=== PATIENT | female | born 1950 | race Two or more races ===

== ENCOUNTER 2019-07-13 22:33 | Emergency (ER) | payer OTHER ==
[~2019-07-13] VITALS: Ht 162.6 cm; Wt 91.6 kg
[~2019-07-13 22:33] MED LIST: ATENOLOL50 MG PO; DIOVAN160 M1 PO; FIORICET TABLET1 TAB PO; HYZAAR 100-251 UDTAB
[2019-07-14] MEDS ORDERED: PYRIDIUM100 M1 PO (05:25)
[2019-07-14] MEDS ORDERED: CIPRO500 MG PO (05:25)
== END 2019-07-14 05:56 | disposition home or self-care (01) ==
LOC: ER 22:33
DX: N39.0 Urinary tract infection, site not specified (principal)

== ENCOUNTER 2023-05-28 21:40 | Emergency (ER) | payer OTHER ==
[~2023-05-28] VITALS: Ht 162.6 cm; Wt 77.1 kg
[~2023-05-28 21:40] MED LIST changes: +CIPRO500 MG PO; +PYRIDIUM100 M1 PO
[2023-05-29] MEDS ORDERED: PHENERGAN25 MG PO (12:49)
[2023-05-29] MEDS ORDERED: LIPO-FLAVONOID1 EACH PO (12:49)
== END 2023-05-29 00:33 | disposition home or self-care (01) ==
LOC: ER 21:40
PROVIDERS: General Practice
DX: R42 Dizziness and giddiness (principal); Z88.0 Allergy status to penicillin; I10 Essential (primary) hypertension; E11.9 Type 2 diabetes mellitus without complications; Z86.73 Personal history of transient ischemic attack (TIA), and cerebral infarction without residual deficits
CPT/HCPCS: 36415; 70450; 71045; 96365; 96366; 99284; J2250; J2765; J3490; J7030

== ENCOUNTER 2025-02-24 09:54 | Outpatient (CLI) | payer OTHER ==
[~2025-02-24 09:54] MED LIST changes: +LIPO-FLAVONOID1 EACH PO; +PHENERGAN25 MG PO
== END 2025-02-24 10:05 | disposition home or self-care (01) ==
LOC: MRI 09:54
PROVIDERS: ATTEND Psychiatry & Neurology Clinical Neurophysiology
DX: R51.9 Headache, unspecified (principal); I68.0 Cerebral amyloid angiopathy
CPT/HCPCS: 70551